=== PATIENT | female | born 2000 | race Caucasian/White ===

== ENCOUNTER → 2021-01-16 07:56 | Outpatient (CLI) | payer BC, SELFPAY | PROVIDERS: Visit Provider Physician Assistant | DX: M54.9 Dorsalgia, unspecified (principal) | CPT/HCPCS: 87086 ==

== ENCOUNTER 2021-01-16 08:25 | Emergency (ER) | payer BC, SELFPAY ==
[2021-01-16 08:42] VITALS: BP 183/110; PULSE 78; RESP 15; TEMP 36.7; O2SAT 97; BMI 40.4
--- NOTE | 2021-01-16 08:55 | DI.US.S_ITS ---
PROCEDURE: US PELVIC COMPLETE INDICATIONS: PAIN; CHECK IUD PLACEMENT TECHNIQUE: Real-time scanning was performed of the pelvic organs, with image documentation. Additional endovaginal scanning was necessary due to incomplete visualization of the adnexal and endometrial structures by transabdominal scanning. COMPARISON: [facility], CT, CT ABDOMEN PELVIS WITH CONTRAST, 01/13/2021, 12:11. FINDINGS: Uterus: Uterus is anteverted and normal in size at 8.2 x 4.8 x 4.2 cm. The endometrium measures 6 mm in combined thickness. IUD in the endometrial cavity. The IUD is low lying. Ovaries: Blood flow is seen in both ovaries. Right ovary measures 4.5 x 3.8 x 3.6 cm. -complex right ovarian cyst measuring 4.2 x 3.1 x 2.9 cm. Internal septations. No internal vascularity. Left ovary measures 4.1 x 2.6 x 2.3 cm. -simple left ovarian cyst measuring 1.8 cm. Other: No pathologic free abdominal or pelvic fluid. IMPRESSION: 1. IUD is located in the lower uterine segment and is low lying. -Recommend removal and replacement. 2. Complex right ovarian cyst measuring 4.2 cm. This could represent a hemorrhagic cyst. -Recommend follow-up pelvic ultrasound in 6-12 weeks. Comment: Findings were discussed with Tamanna Torres at the time of dictation. Dictated by: Kevin Rutherford M.D. on 01/16/2021 at 9:34 Approved by: Kevin Rutherford M.D. on 01/16/2021 at 9:42
--- NOTE | 2021-01-16 09:02 | ED.ABDPAIN ---
HPI - Abdominal Pain General Chief Complaint: Abdominal Pain Stated Complaint: back pain Time Seen by Provider: 01/16/21 08:37 Source: patient Mode of arrival: Ambulatory Limitations: no limitations History of Present Illness HPI narrative: Patient is a 20-year-old female presents with ongoing left flank pain and suprapubic pain. She was apparently seen evaluated at [facility] last week and had a CT. She is here looking for a 2nd opinion. She thinks she has some ovarian cyst. She has an IUD she denies any vaginal bleeding or vaginal discharge. She has no painful or frequent urination. She actually had a UA at the walk-in clinic today which did show cloudy and leukocytes. POC was not done. She currently does not need anything for pain. He denies any fever or chills. Left flank pain is it is nonradiating it seems to be in her left kidney area. MD complaint: abdominal pain and flank pain Onset (ago): week(s) Pain Consistency: constant Location: suprapubic and L flank Related Data Home Medications Medication Instructions Recorded Confirmed adalimumab 40 mg/0.8 mL 40 mg SUBCUT Q2W 01/16/21 01/16/21 subcutaneous syringe kit fluoxetine 10 mg capsule 10 mg PO DAILY 01/16/21 01/16/21 lamotrigine 25 mg tablet 25 mg PO ONCE 01/16/21 01/16/21 Previous Rx's Medication Instructions Recorded cephalexin 500 mg PO BID 5 Days #10 cap 01/16/21 Allergies Allergy/AdvReac Type Severity Reaction Status Date / Time No Known Drug Allergies Allergy Unverified 01/16/21 08:03 Review of Systems Review of Systems Narrative: GENERAL: Denies chills, fatigue, malaise, fever, sweats, travel HEENT: Denies sinus pain, ear pain, sore throat, difficulty swallowing, neck pain RESPIRATORY: Denies dyspnea, cough, wheezing, hemoptysis, sputum. CARDIOVASCULAR: Denies chest pain, palpitations, orthopnea, edema GASTROINTESTINAL: See HPI : Denies dysuria, frequency, incontinence, hematuria, urinary retention, flank pain. MUSCULOSKELETAL: Denies weakness, joint pain, or bony pain SKIN: No rash, no erythema, no pruritus NEUROLOGIC: Denies weakness, dizziness, headache, numbness, change in speech, confusion PSYCHIATRIC: No concerning psychosocial issues. 12 point review of systems is negative except for those stated above and HPI Patient History Medical History Patient denies medical problems Social History Smoking Status: Never smoker Smoking Status: Never smoker alcohol intake frequency: 0-2 drinks per day Substance Use Type: does not use Exam Initial Vital Signs Initial Vital Signs: Vital Signs Temperature 98.0 F 01/16/21 08:42 Pulse Rate 78 01/16/21 08:42 Respiratory Rate 15 01/16/21 08:42 Blood Pressure 183/110 H 01/16/21 08:42 Pulse Oximetry 97 01/16/21 08:42 GENERAL: Well-appearing 20-year-old female and in no acute distress. HEENT: Head atraumatic,EOMI, pupils reactive, face symmetric, moist mucous membranes CARDIOVASCULAR: Regular rate and rhythm without murmurs, rubs or gallops. RESPIRATORY: Breath sounds equal bilaterally, no wheezes rales or rhonchi. ABDOMEN: Soft, mild suprapubic tenderness no guarding or rebound Normoactive bowel sounds all 4 quadrants. No guarding or rebound. : Left CVA tenderness EXTREMITIES: Normal range of motion, no clubbing or edema. Neurovascularly intact NEUROLOGICAL: Alert and oriented x4.Normal gait and speech. SKIN: Warm, dry, no laceration, no petechiae, no rashes or lesions. Course Orders Ordered: ED Orders 01/16/21 13:56 Chlamydia/Gonoc/Myco Genital Stat Genital Culture Stat Wet Prep Tric BV Darlene Stat Vital Signs Vital signs: Vital Signs - 8 hr 01/16/21 08:42 Temperature 98.0 F Pulse Rate 78 Respiratory Rate 15 Blood Pressure 183/110 H Pulse Oximetry 97 MDM - Abdominal Pain Lab Data Attestation: I reviewed the patient's lab results. Result diagrams: 01/16/21 09:31 01/16/21 09:31 Labs: Lab Results 01/16/21 01/16/21 Range/Units 09:31 09:31 WBC 7.2 (4.5-11.0) X10^3/uL RBC 4.37 (4.0-5.2) X10^6/uL Hgb 12.6 (12.0-16.0) g/dL Hct 37.9 (36-46) % MCV 86.7 (80-100) fL MCH 28.8 (26-34) PG MCHC 33.3 (30-36) % RDW 13.6 (11.6-14.8) % Plt Count 247 (150-400) X10^3/uL Neut % (Auto) 60.5 (50-75) % Lymph % (Auto) 27.2 (25-40) % Sterling % (Auto) 10.2 (3-14) % Eos % (Auto) 1.3 L (2-4) % Baso % (Auto) 0.8 (0-2) % Neut # (Auto) 4300 (4820-8400) /uL Lymph # (Auto) 2000 (5691-9737) /uL Sterling # (Auto) 700 (0-900) /uL Eos # (Auto) 100 (0-450) /uL Baso # (Auto) 100 (0-100) /uL Sodium 139 (137-145) mmol/L Potassium 3.8 (3.4-5.1) mmol/L Chloride 103 (98-107) mmol/L Carbon Dioxide 28 (22-32) mmol/L BUN 12 (7-17) mg/dL Creatinine 0.55 (0.52-1.04) mg/dL Estimated GFR > 60.0 (>60) mL/min BUN/Creatinine Ratio 21.8 (6-22) Glucose 108 H (70-100) mg/dL Calcium 9.1 (8.4-10.2) mg/dL Total Bilirubin 0.2 (0.2-1.3) mg/dL AST 31 (14-36) IU/L ALT 30 (<35) IU/L Alkaline Phosphatase 56 (38-126) U/L Total Protein 7.6 (6.3-8.2) g/dL Albumin 4.3 (3.5-5.0) g/dL Globulin 3.3 (1.7-4.1) g/dL Albumin/Globulin Ratio 1.3 (1.0-2.8) Lipase 136 (23-300) U/L Imaging Data US - WALLPAPERER: Radiologist's Impression: PROCEDURE: US PELVIC COMPLETE INDICATIONS: PAIN; CHECK IUD PLACEMENT TECHNIQUE: Real-time scanning was performed of the pelvic organs, with image documentation. Additional endovaginal scanning was necessary due to incomplete visualization of the adnexal and endometrial structures by transabdominal scanning. COMPARISON: [facility], CT, CT ABDOMEN PELVIS WITH CONTRAST, 01/13/2021, 12:11. FINDINGS: Uterus: Uterus is anteverted and normal in size at 8.2 x 4.8 x 4.2 cm. The endometrium measures 6 mm in combined thickness. IUD in the endometrial cavity. The IUD is low lying. Ovaries: Blood flow is seen in both ovaries. Right ovary measures 4.5 x 3.8 x 3.6 cm. -complex right ovarian cyst measuring 4.2 x 3.1 x 2.9 cm. Internal septations. No internal vascularity. Left ovary measures 4.1 x 2.6 x 2.3 cm. -simple left ovarian cyst measuring 1.8 cm. Other: No pathologic free abdominal or pelvic fluid. IMPRESSION: 1. IUD is located in the lower uterine segment and is low lying. -Recommend removal and replacement. 2. Complex right ovarian cyst measuring 4.2 cm. This could represent a hemorrhagic cyst. -Recommend follow-up pelvic ultrasound in 6-12 weeks. Comment: Findings were discussed with Tamanna Torres at the time of dictation. Dictated by: Kevin Rutherford M.D. on 01/16/2021 at 9:34 MDM Narrative Medical decision making narrative: Due to body habitus unable to visualize cervix and IUD strings were not seen. I was also unable to feel cervix. His discharge I did not remove the IUD I discussed with patient it does likely need to be removed and she should use and other form of control. Urine from walk-in clinic does show cloudy with 70+ leukocytes awaiting for urine culture. With left flank pain will treat for mild pyelo. She does not appear septic. At this time urogynecology physician cultures have been sent and pending but I am not suspicious for PID. Discharge Plan Departure Patient Disposition: Home Clinical Impression: Attempted IUD removal, unsuccessful UTI (urinary tract infection) Qualifiers: Urinary tract infection type: acute pyelonephritis Qualified Code(s): N10 - Acute pyelonephritis Instructions: Kidney Infection Activity Restrictions/Additional Instructions: *You have been diagnosed with kidney infection and IUD issues *What to do: You likely have a mild kidney infection causing your left-sided back pain. I suspect it will improve with antibiotics. Her IUD is low in the uterus and not in proper position and will not likely work properly. It does need to be removed. Please see your urogynecology physician about this and use another form of control. *Continue to take medications as directed Keflex 500 mg twice a day for 5 days--> SENT TO [facility] *Follow up with your primary care provider in 2-3 days *Return to ER if you should have increasing pain, fever or any new, worsening or concerning symptoms Prescriptions: New cephalexin 500 mg capsule 500 mg PO BID 5 Days Qty: 10 RF: 0 No Action fluoxetine 10 mg capsule 10 mg PO DAILY RF: 0 lamotrigine 25 mg tablet 25 mg PO ONCE RF: 0 Humira 40 mg/0.8 mL syringe kit 40 mg SUBCUT Q2W RF: 0 Referrals: Miscellaneous,Doctor, MD [Primary Care Provider] -
[2021-01-16 09:42] LABS: Add Manual Diff / Slide Review NO; Basophils Absolute Auto 100 /uL (0-100); Basophils Percent Auto 0.8 % (0-2); Eosinophils Absolute Auto 100 /uL (0-450); Eosinophils Percent Auto 1.3 % (2-4); Hematocrit 37.9 % (36-46); Hemoglobin 12.6 g/dL (12.0-16.0); Lymphocytes Absolute Auto 2000 /uL (1100-4500); Lymphocytes Percent Auto 27.2 % (25-40); Mean Corpuscular HGB Conc 33.3 % (30-36); Mean Corpuscular Hemoglobin 28.8 PG (26-34); Mean Corpuscular Volume 86.7 fL (80-100); Monocytes Absolute Auto 700 /uL (0-900); Monocytes Percent Auto 10.2 % (3-14); Neutrophils Absolute Auto 4300 /uL (1500-7000); Neutrophils Percent Auto 60.5 % (50-75); Platelet Count 247 X10^3/uL (150-400); Red Blood Cell Count 4.37 X10^6/uL (4.0-5.2); Red Cell Distribution Width 13.6 % (11.6-14.8); White Blood Cell Count 7.2 X10^3/uL (4.5-11.0)
[2021-01-16 10:20] LABS: Alanine Aminotransferase 30 IU/L (<35); Albumin 4.3 g/dL (3.5-5.0); Albumin Globulin Ratio 1.3 (1.0-2.8); Alkaline Phosphatase 56 U/L (38-126); Aspartate Aminotransferase 31 IU/L (14-36); BUN Creatinine Ratio 21.8 (6-22); Bilirubin Total 0.2 mg/dL (0.2-1.3); Blood Urea Nitrogen 12 mg/dL (7-17); Calcium 9.1 mg/dL (8.4-10.2); Carbon Dioxide 28 mmol/L (22-32); Chloride 103 mmol/L (98-107); Estimated Glomerular Filt Rate > 60.0 mL/min (>60); Globulin 3.3 g/dL (1.7-4.1); Glucose 108 mg/dL (70-100); HEMOLYSIS < 15 (0-50); Lipase 136 U/L (23-300); Potassium 3.8 mmol/L (3.4-5.1); Sodium 139 mmol/L (137-145); Total Protein 7.6 g/dL (6.3-8.2)
[2021-01-19 12:14] LABS: Chlamydia trachomatis Negative (Negative); Mycoplasma genitalium Negative (Negative); Neisseria gonorrhoeae Negative (Negative)
== END 2021-01-16 11:45 | disposition home or self-care (01) ==
PROVIDERS: Emergency Provider Emergency Medicine
DX: N10 Acute pyelonephritis (principal); M54.9 Dorsalgia, unspecified; R10.9 Unspecified abdominal pain
CPT/HCPCS: 36415; 76830; 76856; 80053; 83690; 85025; 87070; 87086; 87205; 87210; 87491; 87563; 87591; 99284

== ENCOUNTER 2021-03-11 23:03 | Emergency (ER) | payer BC, SELFPAY ==
[2021-03-11 23:16] VITALS: BP 140/79; PULSE 82; RESP 22; TEMP 36.6; O2SAT 97; BMI 40.4
--- NOTE | 2021-03-11 23:25 | DI.RAD.S_ITS ---
PROCEDURE: XR CHEST 2V INDICATIONS: cough/wheeze TECHNIQUE: 2 views of the chest were acquired. COMPARISON: None. FINDINGS: Surgical changes and devices: None. Lungs and pleura: Lungs are clear. No pleural effusions or pneumothorax. Mediastinum: Mediastinal contours are normal. Heart size is normal. Bones and chest wall: No suspicious bony abnormalities. Soft tissues appear unremarkable. IMPRESSION: No acute cardiopulmonary disease process. Dictated by: Renata Martínez MD, PhD on 03/12/2021 at 8:57 Approved by: Renata Martínez MD, PhD on 03/12/2021 at 8:58
--- NOTE | 2021-03-12 00:21 | ED.GENADULT ---
HPI - General Adult General Chief complaint: Upper Respiratory Symptoms Stated complaint: WHEEZING COUGH HEADACHE Time Seen by Provider: 03/11/21 23:19 Source: patient Mode of arrival: Ambulatory Limitations: no limitations History of Present Illness HPI narrative: 20-year-old woman with a history of depression, hidradinitis supurvita currently on Humira with no history of significant allergies or asthma presents with acute onset of severe cough developing over the last 1-1/2 hours that seems to be getting worse. She describes no fevers, palpitations, nausea vomiting or diarrhea, no abdominal pain no headaches. She has never had anything like this before and stated she does not feel sick she simply is coughing. Related Data Home Medications Medication Instructions Recorded Confirmed adalimumab 40 mg/0.8 mL 40 mg SUBCUT Q2W 01/16/21 01/16/21 subcutaneous syringe kit fluoxetine 10 mg capsule 10 mg PO DAILY 01/16/21 01/16/21 lamotrigine 25 mg tablet 25 mg PO ONCE 01/16/21 01/16/21 Previous Rx's Medication Instructions Recorded prednisone 20 mg PO DAILY 5 Days #5 tab 03/12/21 Allergies Allergy/AdvReac Type Severity Reaction Status Date / Time No Known Drug Allergies Allergy Unverified 01/16/21 08:03 Review of Systems Review of Systems Narrative: Remainder of complete review of systems is otherwise unremarkable except for that included in the HPI. Patient History Medical History Depression Hidradenitis suppurativa Social History Smoking Status: Never smoker Smoking Status: Never smoker alcohol intake frequency: 0-2 drinks per day Substance Use Type: does not use Exam Narrative Exam Narrative: General: Healthy appearing, in no acute distress. Able to give a complete and coherent history. Well-nourished well-developed HEENT: Moist mucous membranes, normal sclera with reactive pupils, Respiratory: Lungs are clear to auscultation, no wheezing no rales no rhonchi. She does have a dry cough that is increasing over her emergency room stay. Full and symmetrical air movement Cardiac: Regular rate and rhythm no murmurs no bruits Abdomen: Soft, nontender, good bowel tones, no flank pain Skin: Warm and dry, no rashes Neurologic: Grossly neurologically intact with no obvious asymmetries or abnormalities Extremities: No trauma, well perfused Psych: Cooperative, appropriate insight and affect Initial Vital Signs Initial Vital Signs: Vital Signs Temperature 97.8 F 03/11/21 23:16 Pulse Rate 82 03/11/21 23:16 Respiratory Rate 22 03/11/21 23:16 Blood Pressure 140/79 03/11/21 23:16 Pulse Oximetry 97 03/11/21 23:16 Course Orders Ordered: ED Orders 03/11/21 23:25 XR chest 2V Stat 03/12/21 00:30 COVID19 -Nasal swab/Pre-Proc Stat Discontinued Medications Albuterol/Ipratropium (Ipratropium/Albuterol Prepack) 1 box MISC SEEINSTR ONE Stop: 03/12/21 00:21 Benzonatate (Benzonatate 100 Mg Capsule) 100 mg PO NOW ONE Stop: 03/12/21 00:21 Last Admin: 03/12/21 00:26 Dose: 100 mg Documented by: ASHLEY Prednisone (Prednisone 20 Mg Tablet) 60 mg PO NOW ONE Stop: 03/12/21 00:21 Last Admin: 03/12/21 00:25 Dose: 60 mg Documented by: ASHLEY Vital Signs Vital signs: Vital Signs - 8 hr 03/11/21 23:16 03/12/21 02:08 Temperature 97.8 F 99 F Pulse Rate 82 Respiratory Rate 22 Blood Pressure 140/79 Pulse Oximetry 97 Medical Decision Making Medical Records Medical records reviewed: Yes I reviewed the patient's medical records. Lab Data Lab results reviewed: Yes I reviewed the patient's lab results. Labs: Lab Results 03/12/21 Range/Units 00:30 SARS-CoV-2 (PCR) Negative (Negative) MDM Narrative Medical decision making narrative: acute onset of cough without wheeze, dyspnea,chest pain. No evidence infection, Covid, aspiration, pneumothorax, flash pulmonary edema. Most likely explanation is acute expure to unknown inhalent. She responded well to a single dose of oral steroid with complete resolution of cough. Reviewed signs and symptoms of anaphylaxis and increasing respiratory distress. She is safe for home discharge Discharge Plan Departure Patient Disposition: Home Clinical Impression: Cough Instructions: DI for Cough -- Adult, DI for General Allergic Reactions Activity Restrictions/Additional Instructions: Thank you for coming in today You had a dramatic onset of a fairly impressive dry cough without any evidence of infection, pneumothorax, COVID-19 pneumonia, bronchitis or aspiration of any type. Your cough improved nicely with a single dose of oral prednisone. There was no clinical wheezing and symptoms resolved prior to any albuterol. I suspect that your exposed to something that caused this dramatic cough. You may never figured out, but if you do you clearly need to avoid what ever the stimulus was. I have given you a prescription for prednisone for the next 4 days. If you have no cough and or feeling fine by tomorrow, please do not feel this. If you find that symptoms are worse, you are actually feeling short of breath, you are hearing yourself wheeze, you feel that your throat is getting tighter or you have any other concerning symptoms please return to the ER Prescriptions: New prednisone 20 mg tablet 20 mg PO DAILY 5 Days Qty: 5 RF: 0 No Action fluoxetine 10 mg capsule 10 mg PO DAILY RF: 0 lamotrigine 25 mg tablet 25 mg PO ONCE RF: 0 Humira 40 mg/0.8 mL syringe kit 40 mg SUBCUT Q2W RF: 0
[2021-03-12] MEDS: predniSONE 20 MG TABLET 60 MG PO (00:25)
[2021-03-12] MEDS: BENZONATATE 100 MG CAPSULE PO (00:26)
[2021-03-12 00:50] LABS: COVID19 -Nasal RAPID Negative (Negative)
[2021-03-12 02:08] VITALS: TEMP 37.2
== END 2021-03-12 02:09 | disposition home or self-care (01) ==
PROVIDERS: Emergency Provider Emergency Medicine
DX: R05 Cough (principal); Z20.822 Contact with and (suspected) exposure to COVID-19
CPT/HCPCS: 71046; 87635; 99283; C9803

== ENCOUNTER 2021-06-23 10:08 | Emergency (ER) | payer BC, SELFPAY ==
[2021-06-23 10:33] VITALS: BP 154/102; PULSE 80; RESP 17; TEMP 36.9; O2SAT 98; BMI 40.4
[2021-06-23 11:06] LABS: COVID19 -Nasal RAPID Negative (Negative)
--- NOTE | 2021-06-23 15:17 | ED_ITS ---
HPI - URI/Sore Throat <LALITA Johnson - Last Filed: 06/23/21 15:29> General Chief Complaint: Upper Respiratory Symptoms Stated Complaint: tonsils swollen /hurt Source: patient Mode of arrival: Ambulatory Limitations: no limitations History of Present Illness HPI Narrative: 20-year-old female presents to the ED for sore throat x3 days without fever. She reports having some mild body aches however no other symptoms including nausea/vomiting, chest pain, or respiratory distress. She has a history of a thrush infection in her mouth many years ago. She endorses having a white film on her tongue similar to when she had thrush in the past. Related Data Home Medications Medication Instructions Recorded Confirmed adalimumab 40 mg/0.8 mL 40 mg SUBCUT Q2W 01/16/21 01/16/21 subcutaneous syringe kit (Humira) fluoxetine 10 mg capsule 10 mg PO DAILY 01/16/21 01/16/21 lamotrigine 25 mg tablet 25 mg PO ONCE 01/16/21 01/16/21 Previous Rx's Medication Instructions Recorded clotrimazole 10 mg tacos 10 mg MUCOUS MEMBRANE 5XD 14 Days 06/23/21 #70 tab Allergies Allergy/AdvReac Type Severity Reaction Status Date / Time No Known Drug Allergies Allergy Verified 06/23/21 10:41 Review of Systems <LALITA Johnson - Last Filed: 06/23/21 15:29> Review of Systems Narrative: General: denies fever, chills Head/Neck: denies headache, neck pain, reports sore throat, swollen tonsils Eyes: denies visual changes, eye pain Cardio: denies chest pain, palpitations Respiratory: denies shortness of breath, cough GI: denies abdominal pain, nausea, vomiting, or diarrhea : denies dysuria, hematuria MSK: denies joint pain, muscle weakness Skin: denies rash, itching Neuro: denies numbness, tingling Patient History <LALITA Johnson - Last Filed: 06/23/21 15:29> Medical History Depression Hidradenitis suppurativa Social History Smoking Status: Never smoker Smoking Status: Never smoker alcohol intake frequency: 0-2 drinks per day Substance Use Type: does not use Exam <LALITA Johnson - Last Filed: 06/23/21 15:29> Narrative Exam Narrative: Independently reviewed vitals signs and nursing notes. General: Awake, alert, nontoxic, no cardiorespiratory distress Head/Neck: Atraumatic, neck full range of motion Eyes: EOMI, conjunctiva normal Nose: nares patent, no rhinorrhea Mouth/Throat: moist mucus membranes, bilateral tonsil edema without exudate or erythema. No cervical lymphadenopathy, thin white discharge on tongue. Cardio: Regular rate and rhythm, no peripheral edema Respiratory: respirations unlabored without wheezing, stridor, or rales. No retractions. GI: Abdomen soft, nontender MSK: Moves all extremities, neurovascularly intact Skin: Normal capillary refill, no rash Neuro: Normal speech and cognition, normal gait Initial Vital Signs Initial Vital Signs: Vital Signs Temperature 98.4 F 06/23/21 10:33 Pulse Rate 80 06/23/21 10:33 Respiratory Rate 17 06/23/21 10:33 Blood Pressure 154/102 H 06/23/21 10:33 Pulse Oximetry 98 06/23/21 10:33 <Tamanna Torres DO - Last Filed: 06/24/21 08:47> Initial Vital Signs Initial Vital Signs: Vital Signs Temperature 98.4 F 06/23/21 10:33 Pulse Rate 80 06/23/21 10:33 Respiratory Rate 17 06/23/21 10:33 Blood Pressure 154/102 H 06/23/21 10:33 Pulse Oximetry 98 06/23/21 10:33 Course <LALITA Johnson - Last Filed: 06/23/21 15:29> Orders Ordered: ED Orders 06/23/21 10:40 Throat Culture Stat 06/23/21 10:45 COVID19 -Nasal swab/Pre-Proc Stat Vital Signs Vital signs: Vital Signs - 8 hr 06/23/21 10:33 Temperature 98.4 F Pulse Rate 80 Respiratory Rate 17 Blood Pressure 154/102 H Pulse Oximetry 98 <DO Naa Harvey Last Filed: 06/24/21 08:47> Orders Ordered: ED Orders 06/23/21 10:40 Throat Culture Stat 06/23/21 10:45 COVID19 -Nasal swab/Pre-Proc Stat Vital Signs Vital signs: Vital Signs - 8 hr 06/23/21 10:33 Temperature 98.4 F Pulse Rate 80 Respiratory Rate 17 Blood Pressure 154/102 H Pulse Oximetry 98 MDM - URI/Sore Throat <LALITA Johnson - Last Filed: 06/23/21 15:29> Lab Data Labs: Lab Results 06/23/21 Range/Units 10:45 SARS-CoV-2 (PCR) Negative (Negative) Point of Care Testing Rapid Strep A Negative MDM Narrative Medical decision making narrative: 20-year-old female presents to the ED today for sore throat x3 days without fever. She endorses having some mild body aches and has a history of thrush in the past. Strep negative, COVID negative, will follow results of throat culture. Likely thrush on tongue, no respiratory distress, or stridor. Initial ddx to include but not limited to, viral pharyngitis, retropharyngeal abscess, or unspecified bacterial infection. Patient is appropriate and amenable to discharge home. Vital signs are stable on repeat examination is unremarkable. Patient has been informed of results. Patient has been given strict return to ER precautions for any new or worsening symptoms. Patient understands to follow up closely with outpatient providers as instructed. Patient understands plan and agrees to discharge home. All questions and concerns answered at this time. <Tamanna Torres DO - Last Filed: 06/24/21 08:47> Lab Data Labs: Lab Results 06/23/21 Range/Units 10:45 SARS-CoV-2 (PCR) Negative (Negative) Point of Care Testing Rapid Strep A Negative Discharge Plan Departure Patient Disposition: Home Clinical Impression: Pharyngitis Qualifiers: Pharyngitis/tonsillitis etiology: unspecified etiology Qualified Code(s): J02.9 - Acute pharyngitis, unspecified Instructions: DI for Pharyngitis/Tonsillopharyngitis -- Adult Activity Restrictions/Additional Instructions: *You have been diagnosed with pharyngitis (sore throat), and possible thrush. We will call you if your throat culture is positive for something bacterial that needs antibiotics. *What to do: *Please continue to take your regular medications as directed. [x] New medication prescriptions sent to your pharmacy: [ [facility]] [ ] New medication written as a paper prescription [ ] No new medications given *Please follow up with your primary care provider in 2-3 days, call for an appointment. Let them know you were seen in the Emergency Department and that we ask that you be seen in follow up. We will electronically transmit a record of today's note if your PCP is in our system *If you do not have a primary care provider please contact the [facility] Resource line at [phone]. They will ask some questions about your medical history and help get you set up with a doctor in the community. *Return to Emergency Department if you should have any new, worsening or concerning symptoms, such as [fever greater than 101 F, shaking chills, worsening pain, persistent vomiting or other bothersome symptoms] Prescriptions: New clotrimazole 10 mg tacos 10 mg mucous membrane 5XD 14 Days Qty: 70 RF: 0 No Action fluoxetine 10 mg capsule 10 mg PO DAILY RF: 0 lamotrigine 25 mg tablet 25 mg PO ONCE RF: 0 Humira 40 mg/0.8 mL syringe kit 40 mg SUBCUT Q2W RF: 0 <Tamanna Torres, DO - Last Filed: 06/24/21 08:47> Cosign ED Attending Cosevelinaature Attestation: I was immediately available in the department for consultation. Documentation has been reviewed. I agree with assessment and plan.
== END 2021-06-23 14:03 | disposition home or self-care (01) ==
PROVIDERS: Emergency Medicine; Emergency Provider Nurse Practitioner Critical Care Medicine
DX: J02.9 Acute pharyngitis, unspecified (principal); Z20.822 Contact with and (suspected) exposure to COVID-19
CPT/HCPCS: 87070; 87147; 87635; 87880; 99282; C9803

== ENCOUNTER 2021-08-06 13:22 | Emergency (ER) | payer BC, SELFPAY ==
[2021-08-06 13:49] VITALS: BP 149/86; PULSE 102; RESP 22; TEMP 36.5; O2SAT 98
[2021-08-06 14:08] LABS: Add Manual Diff / Slide Review NO; Basophils Absolute Auto 0 /uL (0-100); Basophils Percent Auto 0.4 % (0-2); Eosinophils Absolute Auto 100 /uL (0-450); Eosinophils Percent Auto 1.1 % (2-4); Hematocrit 40.6 % (36-46); Hemoglobin 13.4 g/dL (12.0-16.0); Lymphocytes Absolute Auto 2300 /uL (1100-4500); Lymphocytes Percent Auto 29.7 % (25-40); Mean Corpuscular HGB Conc 33.1 % (30-36); Mean Corpuscular Hemoglobin 28.4 PG (26-34); Mean Corpuscular Volume 85.9 fL (80-100); Monocytes Absolute Auto 700 /uL (0-900); Monocytes Percent Auto 8.8 % (3-14); Neutrophils Absolute Auto 4700 /uL (1500-7000); Platelet Count 265 X10^3/uL (150-400); Red Blood Cell Count 4.73 X10^6/uL (4.0-5.2); Red Cell Distribution Width 13.2 % (11.6-14.8); White Blood Cell Count 7.8 X10^3/uL (4.5-11.0)
[2021-08-06 14:19] LABS: Alanine Aminotransferase 34 IU/L (<35); Albumin 4.6 g/dL (3.5-5.0); Albumin Globulin Ratio 1.4 (1.0-2.8); Alkaline Phosphatase 44 U/L (38-126); Aspartate Aminotransferase 27 IU/L (14-36); BUN Creatinine Ratio 21.7 (6-22); Bilirubin Total 0.3 mg/dL (0.2-1.3); Blood Urea Nitrogen 15 mg/dL (7-17); Calcium 8.9 mg/dL (8.4-10.2); Carbon Dioxide 26 mmol/L (22-32); Chloride 104 mmol/L (98-107); Estimated Glomerular Filt Rate > 60.0 mL/min (>60); Globulin 3.3 g/dL (1.7-4.1); Glucose 103 mg/dL (70-100); HEMOLYSIS < 15 (0-50); Lipase 126 U/L (23-300); Sodium 141 mmol/L (137-145); Total Protein 7.9 g/dL (6.3-8.2)
[2021-08-06 17:18] VITALS: BP 145/92; PULSE 93; O2SAT 98
[2021-08-06 17:26] LABS: Bacteria Urine Few (2-10); Culture Indicated Urine Specimen Cultured; Mucus Urine 1+ (Negative); RBC Urine 5-10/HPF (0-5/HPF); Squamous Epithelial Cell Urine 1-5 /HPF (0-5/HPF); Transitional Epi Cells Urine 1-5/HPF (0-5/HPF); WBC Urine 5-10/HPF (0-5/HPF)
--- NOTE | 2021-08-06 17:28 | DI.US.S_ITS ---
PROCEDURE: US PELVIC COMPLETE INDICATIONS: PAIN TECHNIQUE: Real-time scanning was performed of the pelvic organs, with image documentation. Additional endovaginal scanning was necessary due to incomplete visualization of the adnexal and endometrial structures by transabdominal scanning. COMPARISON: None. FINDINGS: Normal size of the uterus. IUD is in appropriate position. No uterine mass. Ovaries normal in size and appearance. Bilateral ovarian cysts noted. No free pelvic fluid. IMPRESSION: Normal position of IUD. Normal pelvic ultrasound otherwise. Dictated by: Melvin Delacruz M.D. on 08/06/2021 at 19:55 Approved by: Melvin Delacruz M.D. on 08/06/2021 at 19:57
--- NOTE | 2021-08-06 18:23 | ED_ITS ---
HPI - Female Genitourinary <Ramin Wise PA-C - Last Filed: 08/06/21 20:18> General Chief complaint: Urogenital-Female Stated complaint: Abd Pain Time Seen by Provider: 08/06/21 17:02 Source: patient Mode of arrival: Ambulatory History of Present Illness HPI Narrative: 20-year-old female with past medical history hidradenitis suppurativa, PCOS presents to the ED with lower abdominal pain. Patient states she had an IUD put in 1 month ago. She is on her period that has been ongoing for 12 days. Patient endorses increased pain over the last 2 days, especially worsened today, which brought her to the ED. patient is concerned about the IUD and if it is placed correctly. Patient denies fever, chills, chest pain, shortness of breath, cough, nausea, vomiting, back pain, dysuria, lightheadedness, syncope. Patient denies any abnormal discharge prior to the start of her period. Related Data Home Medications Medication Instructions Recorded Confirmed adalimumab 40 mg/0.8 mL 40 mg SUBCUT Q2W 01/16/21 01/16/21 subcutaneous syringe kit (Humira) fluoxetine 10 mg capsule 10 mg PO DAILY 01/16/21 01/16/21 lamotrigine 25 mg tablet 25 mg PO ONCE 01/16/21 01/16/21 Previous Rx's Medication Instructions Recorded nitrofurantoin 100 mg PO BID 5 Days #10 cap 08/06/21 monohydrate/macrocrystals 100 mg capsule (Macrobid) Allergies Allergy/AdvReac Type Severity Reaction Status Date / Time No Known Drug Allergies Allergy Verified 06/23/21 10:41 Review of Systems <Ramin Wise PA-C - Last Filed: 08/06/21 20:18> Constitutional Constitutional: Denies chills, Denies fatigue, Denies fever(s), Denies frequent falls, Denies lethargy and Denies weakness Eyes Eyes: Denies change in vision, Denies eye discharge, Denies irritation and Denies loss of vision ENT Ears, Nose, Mouth, and Throat: Denies change in voice, Denies dizziness, Denies neck pain, Denies sore throat and Denies throat swelling Cardiovascular Cardiovascular: Denies chest pain, Denies irregular heart rhythm, Denies lightheadedness, Denies palpitations, Denies dyspnea, Denies dyspnea on exertion and Denies orthopnea Respiratory Respiratory: Denies cough, Denies dyspnea, Denies dyspnea on exertion and Denies wheezing Gastrointestinal Gastrointestinal: Reports abdominal pain, Denies change in bowel habits, Denies diarrhea, Denies nausea and Denies vomiting Musculoskeletal Musculoskeletal: Denies neck pain and Denies numbness Integumentary/Breasts Skin/Breast: Denies pruritus, Denies erythema, Denies rash and Denies wounds Neurologic Neurologic: Denies behavioral changes, Denies confusion, Denies dizziness, Denies frequent falls, Denies loss of vision, Denies numbness and Denies weakness Psychiatric Psychiatric: Denies anxiety, Denies behavioral changes, Denies confusion, Denies depression, Denies homicidal ideation and Denies suicidal ideation Endocrine Endocrine: Denies fatigue, Denies flushing and Denies palpitations Hematologic/Lymphatic Hematologic/Lymphatic: Denies easy bruising Allergic/Immunologic Allergic/Immunologic: Denies urticaria, Denies throat swelling and Denies wheezing Patient History <Ramin Wise PA-C - Last Filed: 08/06/21 20:18> Medical History Depression Hidradenitis suppurativa alcohol intake frequency: 0-2 drinks per day Substance Use Type: does not use Exam <Ramin Wise PA-C - Last Filed: 08/06/21 20:18> Initial Vital Signs Initial Vital Signs: Vital Signs Temperature 97.7 F 08/06/21 13:49 Pulse Rate 102 H 08/06/21 13:49 Respiratory Rate 22 08/06/21 13:49 Blood Pressure 149/86 H 08/06/21 13:49 Pulse Oximetry 98 08/06/21 13:49 Const General: cooperative [facility] Head: normocephalic and atraumatic Ears: external ears normal and TM's normal bilaterally Nose: external nose normal and No nasal discharge Face and sinus: sinuses nontender, face symmetric, no sinus tenderness and No dry mucous membranes Mouth: oral mucosae normal and moist mucous membranes Teeth and gingiva: dentition normal Throat: tonsils normal and uvula midline Eyes General: appearance normal, both eyes and all related structures Eyelids: eyelids normal Conjunctivae: conjunctivae normal Sclera: sclerae normal Pupils: PERRL EOM: EOM intact bilaterally Neck Neck: normal visual inspection, trachea midline, No lymphadenopathy, No midline deformity and No JVD Lymphatic: No lymphedema Chest Chest: normal inspection of the chest Resp Effort & Inspection: normal respiratory effort, able to speak in complete sentences, no respiratory distress and no use of accessory muscles Auscultation: clear to auscultation bilaterally, no rales, no rhonchi and no wheezes Cardio Rate: regular rate Rhythm: regular rhythm Heart Sounds: no click, no gallops, no murmurs and no rubs Pulses: normal peripheral pulses GI Inspection: non-distended Palpation: soft, no hepatosplenomegaly, No guarding, No pulsatile mass and No tender Auscultation: normal bowel sounds Other: Abdomen is soft, nondistended. Very tender to palpation in the right and left lower quadrants. No CVA tenderness. Back/Spine/Pelvis Back: No CVA tenderness Cervical Spine: cervical ROM normal and No pain with cervical ROM Thoracic/Lumbar Spine: thoracic and lumbar spine normal to inspection Skin General: no rashes or lesions noted, No jaundice and No petechiae Neuro General: patient alert, patient oriented x3, gait normal and no focal motor deficits Speech: speech normal Extrem General: full ROM, no clubbing, cyanosis or edema, no pedal edema and no calf tenderness Psych Appearance: well kempt Mental Status: mental status grossly normal Attitude: cooperative Thought Content: normal and suicidality Judgment: judgment good <Tamanna Torres DO - Last Filed: 08/10/21 09:21> Initial Vital Signs Initial Vital Signs: Vital Signs Temperature 97.7 F 08/06/21 13:49 Pulse Rate 102 H 08/06/21 13:49 Respiratory Rate 22 08/06/21 13:49 Blood Pressure 149/86 H 08/06/21 13:49 Pulse Oximetry 98 08/06/21 13:49 Course <Ramin Wise PA-C - Last Filed: 08/06/21 20:18> Course Course Narrative: Son negative for acute findings. UA positive for UTI. Labs within normal limits. Patient's symptoms improved with Toradol. On re- examination patient was mildly tender to palpation in the suprapubic region but not as tender in the right and left lower quadrants. Discharge home with prescription for Macrobid, ED return precautions. Orders Ordered: Discontinued Medications Ketorolac Tromethamine (Ketorolac 30 Mg/Ml Vial) 15 mg IV NOW ONE Stop: 08/06/21 18:55 Last Admin: 08/06/21 19:04 Dose: 15 mg Documented by: INGA Vital Signs Vital signs: Vital Signs - 8 hr 08/06/21 13:49 08/06/21 17:18 08/06/21 20:10 Temperature 97.7 F Pulse Rate 102 H 93 H 91 H Respiratory Rate 22 16 Blood Pressure 149/86 H 145/92 H 139/90 Pulse Oximetry 98 98 99 <Tamanna Torres DO - Last Filed: 08/10/21 09:21> Orders Ordered: Discontinued Medications Ketorolac Tromethamine (Ketorolac 30 Mg/Ml Vial) 15 mg IV NOW ONE Stop: 08/06/21 18:55 Last Admin: 08/06/21 19:04 Dose: 15 mg Documented by: INGA Vital Signs Vital signs: Vital Signs - 8 hr 08/06/21 13:49 08/06/21 17:18 08/06/21 20:10 Temperature 97.7 F Pulse Rate 102 H 93 H 91 H Respiratory Rate 22 16 Blood Pressure 149/86 H 145/92 H 139/90 Pulse Oximetry 98 98 99 MDM - Female Genitourinary <Ramin Wise PA-C - Last Filed: 08/06/21 20:18> Lab Data Lab results narrative: Labs within normal limits. UA positive for UTI Result diagrams: 08/06/21 13:58 08/06/21 13:58 Labs: Lab Results 08/06/21 08/06/21 08/06/21 Range/Units 13:58 13:58 16:58 WBC 7.8 (4.5-11.0) X10^3/uL RBC 4.73 (4.0-5.2) X10^6/uL Hgb 13.4 (12.0-16.0) g/dL Hct 40.6 (36-46) % MCV 85.9 (80-100) fL MCH 28.4 (26-34) PG MCHC 33.1 (30-36) % RDW 13.2 (11.6-14.8) % Plt Count 265 (150-400) X10^3/uL Neut % (Auto) 60.0 (50-75) % Lymph % (Auto) 29.7 (25-40) % [place] % (Auto) 8.8 (3-14) % Eos % (Auto) 1.1 L (2-4) % Baso % (Auto) 0.4 (0-2) % Neut # (Auto) 4700 (5303-9251) /uL Lymph # (Auto) 2300 (4918-7774) /uL [place] # (Auto) 700 (0-900) /uL Eos # (Auto) 100 (0-450) /uL Baso # (Auto) 0 (0-100) /uL Sodium 141 (137-145) mmol/L Potassium 4.0 (3.4-5.1) mmol/L Chloride 104 (98-107) mmol/L Carbon Dioxide 26 (22-32) mmol/L BUN 15 (7-17) mg/dL Creatinine 0.69 (0.52-1.04) mg/dL Estimated GFR > 60.0 (>60) mL/min BUN/Creatinine Ratio 21.7 (6-22) Glucose 103 H (70-100) mg/dL Calcium 8.9 (8.4-10.2) mg/dL Total Bilirubin 0.3 (0.2-1.3) mg/dL AST 27 (14-36) IU/L ALT 34 (<35) IU/L Alkaline Phosphatase 44 (38-126) U/L Total Protein 7.9 (6.3-8.2) g/dL Albumin 4.6 (3.5-5.0) g/dL Globulin 3.3 (1.7-4.1) g/dL Albumin/Globulin Ratio 1.4 (1.0-2.8) Lipase 126 (23-300) U/L Urine RBC 5-10/hpf H (0-5/HPF) Urine WBC 5-10/hpf H (0-5/HPF) Ur Squamous Epith Cells 1-5 /hpf (0-5/HPF) Ur Transition Epith Cell 1-5/hpf (0-5/HPF) Urine Bacteria Few (2-10) H (None) Urine Mucus 1+ H (Negative) Ur Culture Indicated? Specimen cultured Point of Care Testing Test Results Negative Urine Dip Bedside Urine Glucose Negative Bedside Urine Bilirubin - Negative Bedside Urine Ketone - Negative Urine Specific [place] 1.015 Bedside Urine Occult Blood ++ Bedside Urine pH 7.5 Bedside Urine Protein +/- 15 Bedside Urine Urobilinogen - Negative Bedside Urine Nitrite - Negative Bedside Urine Leukocytes +/- 15 Esterase Imaging Data US - abdomen: Radiologist's Impression: PROCEDURE:? US PELVIC COMPLETE ? INDICATIONS:? PAIN ? TECHNIQUE:? Real-time scanning was performed of the pelvic organs, with image documentation.? Additional endovaginal scanning was necessary due to incomplete visualization of the adnexal and endometrial structures by transabdominal scanning.? ? COMPARISON:? None. ? FINDINGS:? Normal size of the uterus.? IUD is in appropriate position.? No uterine mass.? Ovaries normal in size and appearance.? Bilateral ovarian cysts noted.? No free pelvic fluid. ? IMPRESSION:? Normal position of IUD.? Normal pelvic ultrasound otherwise. ? ? ? Dictated by: Melvin Delacruz M.D. on 08/06/2021 at 19:55 ? ? Approved by: Melvin Delacruz M.D. on 08/06/2021 at 19:57 ? MDM Narrative Medical decision making narrative: 20-year-old female with past medical history hidradenitis suppurativa, PCOS presents to the ED with lower abdominal pain. Concern for IUD displacement versus ovarian torsion versus ectopic versus UTI versus versus PID versus ruptured ovarian cyst. Will order labs, ultrasound, UA. <Tamanna Torres, - Last Filed: 08/10/21 09:21> Lab Data Labs: Lab Results 08/06/21 08/06/21 08/06/21 Range/Units 13:58 13:58 16:58 WBC 7.8 (4.5-11.0) X10^3/uL RBC 4.73 (4.0-5.2) X10^6/uL Hgb 13.4 (12.0-16.0) g/dL Hct 40.6 (36-46) % MCV 85.9 (80-100) fL MCH 28.4 (26-34) PG MCHC 33.1 (30-36) % RDW 13.2 (11.6-14.8) % Plt Count 265 (150-400) X10^3/uL Neut % (Auto) 60.0 (50-75) % Lymph % (Auto) 29.7 (25-40) % [place] % (Auto) 8.8 (3-14) % Eos % (Auto) 1.1 L (2-4) % Baso % (Auto) 0.4 (0-2) % Neut # (Auto) 4700 (5065-9273) /uL Lymph # (Auto) 2300 (3379-2888) /uL [place] # (Auto) 700 (0-900) /uL Eos # (Auto) 100 (0-450) /uL Baso # (Auto) 0 (0-100) /uL Sodium 141 (137-145) mmol/L Potassium 4.0 (3.4-5.1) mmol/L Chloride 104 (98-107) mmol/L Carbon Dioxide 26 (22-32) mmol/L BUN 15 (7-17) mg/dL Creatinine 0.69 (0.52-1.04) mg/dL Estimated GFR > 60.0 (>60) mL/min BUN/Creatinine Ratio 21.7 (6-22) Glucose 103 H (70-100) mg/dL Calcium 8.9 (8.4-10.2) mg/dL Total Bilirubin 0.3 (0.2-1.3) mg/dL AST 27 (14-36) IU/L ALT 34 (<35) IU/L Alkaline Phosphatase 44 (38-126) U/L Total Protein 7.9 (6.3-8.2) g/dL Albumin 4.6 (3.5-5.0) g/dL Globulin 3.3 (1.7-4.1) g/dL Albumin/Globulin Ratio 1.4 (1.0-2.8) Lipase 126 (23-300) U/L Urine RBC 5-10/hpf H (0-5/HPF) Urine WBC 5-10/hpf H (0-5/HPF) Ur Squamous Epith Cells 1-5 /hpf (0-5/HPF) Ur Transition Epith Cell 1-5/hpf (0-5/HPF) Urine Bacteria Few (2-10) H (None) Urine Mucus 1+ H (Negative) Ur Culture Indicated? Specimen cultured Point of Care Testing Test Results Negative Urine Dip Bedside Urine Glucose Negative Bedside Urine Bilirubin - Negative Bedside Urine Ketone - Negative Urine Specific [place] 1.015 Bedside Urine Occult Blood ++ Bedside Urine pH 7.5 Bedside Urine Protein +/- 15 Bedside Urine Urobilinogen - Negative Bedside Urine Nitrite - Negative Bedside Urine Leukocytes +/- 15 Esterase Discharge Plan Departure Patient Disposition: Home Clinical Impression: Abdominal pain Qualifiers: Abdominal location: lower abdomen, unspecified Qualified Code(s): R10.30 - Lower abdominal pain, unspecified Instructions: DI for Abdominal Pain-Adult Activity Restrictions/Additional Instructions: You were evaluated for abdominal pain in the ED today. Your labs were normal. Your ultrasound was normal. Your urinalysis did show a urinary tract infection. Please take the full course of the antibiotic Macrobid. Return to the ED if you experience worsening symptoms, trouble urinating, painful urination, fever, chills. Prescriptions: New nitrofurantoin monohyd/m-cryst [Macrobid] 100 mg capsule 100 mg PO BID 5 Days Qty: 10 RF: 0 No Action fluoxetine 10 mg capsule 10 mg PO DAILY RF: 0 lamotrigine 25 mg tablet 25 mg PO ONCE RF: 0 Humira 40 mg/0.8 mL syringe kit 40 mg SUBCUT Q2W RF: 0 <Tamanna Torres DO - Last Filed: 08/10/21 09:21> Cosign ED Attending Juanjoature Attestation: I was immediately available in the department for consultation. Documentation has been reviewed. I agree with assessment and plan.
[2021-08-06] MEDS: KETOROLAC 30 MG/ML VIAL 15 MG IV (19:04)
[2021-08-06 20:10] VITALS: BP 139/90; PULSE 91; RESP 16; O2SAT 99
== END 2021-08-06 20:10 | disposition home or self-care (01) ==
PROVIDERS: Emergency Medicine; Emergency Provider Student in an Organized Health Care Education/Training Program
DX: R10.30 Lower abdominal pain, unspecified (principal); N39.0 Urinary tract infection, site not specified
CPT/HCPCS: 36415; 76830; 76856; 80053; 81003; 81015; 81025; 83690; 85025; 87086; 96374; 99283; 99284; J1885